=== PATIENT | male | born 1970 | race Caucasian/White ===

== ENCOUNTER 2017-04-03 20:59 | Emergency (ER) | payer OTHER ==
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
== END 2017-04-03 22:30 | disposition home or self-care (01) ==
LOC: ER 20:59
DX: T23.252A Burn of second degree of left palm, initial encounter (principal); T20.17XA Burn of first degree of neck, initial encounter; T22.111A Burn of first degree of right forearm, initial encounter; T23.231A Burn of second degree of multiple right fingers (nail), not including thumb, initial encounter; T31.0 Burns involving less than 10% of body surface; I10 Essential (primary) hypertension; E11.9 Type 2 diabetes mellitus without complications; F17.200 Nicotine dependence, unspecified, uncomplicated; Z88.6 Allergy status to analgesic agent; Z79.84 Long term (current) use of oral hypoglycemic drugs; Z79.899 Other long term (current) drug therapy; X14.1XXA Other contact with hot air and other hot gases, initial encounter; Y92.009 Unspecified place in unspecified non-institutional (private) residence as the place of occurrence of the external cause